=== PATIENT | male | born 1955 | race Caucasian/White ===

== ENCOUNTER → 2018-02-14 14:54 | Outpatient (CLI) | payer OTHER, SELFPAY ==
--- NOTE | 2018-02-14 | DI.MRI.S_ITS ---
PROCEDURE: MR LUMBAR SPINE WO CON INDICATIONS: LOW BACK PAIN TECHNIQUE: Noncontrast sagittal T1 spin echo and T2 fast echo, sagittal STIR, axial T1 and T2 fast spin echo through the lumbar spine. In cases with scoliosis, additional coronal T2 fast spin echo may be performed. COMPARISON: None. FINDINGS: Image quality: Excellent. Alignment and Curvature: There is normal bony alignment. Bone Marrow: Marrow is of normal overall signal. No acute vertebral body compression fractures. Spinal Cord: Conus medullaris terminates at the L1 level. Visualized cord demonstrates normal signal and size. Paraspinous Soft Tissues: No paravertebral masses. T12-L1: Mild loss of disc height is seen. Loss of disc signal is seen. Mild generalized disc bulge is seen. No significant neural foraminal or central canal narrowing are seen. L1-L2: Mild loss of disc height is seen. Loss of disc signal is seen. Moderate generalized disc bulge is seen. Moderate bilateral neural foraminal narrowing is seen, right worse than left. Moderate central canal narrowing is seen. L2-L3: Moderate loss of disc height is seen. Loss of disc signal is seen. Moderate generalized disc bulge is seen. Moderate bilateral neural foraminal narrowing is seen, left worse than right. Mild to moderate central canal narrowing is seen. L3-L4: There is at least moderate loss of disc height is seen. Moderate disc bulge is seen, which is eccentric to the left. Schmorl's nodes are seen at the inferior endplate of L3 and the superior endplate of L4. Mild facet joint hypertrophy is seen. Moderate to severe bilateral neural foraminal narrowing is seen, left worse than right. There is a degree of impingement seen upon the exiting nerve roots. Mild to moderate central canal narrowing is seen. L4-L5: Moderate loss of disc height is seen. Loss of disc signal is seen. Mild to moderate disc bulge is seen at this level. Mild facet joint hypertrophy is seen. Moderate to severe right-sided and moderate left-sided neural foraminal narrowing. Minimal central canal narrowing is seen. L5-S1: Mild to moderate loss of disc height and disc signal are seen. Mild to moderate disc bulge is seen. Mild facet joint hypertrophy is seen. Moderate to severe bilateral neural foraminal narrowing is seen, right worse than left. There is a degree of impingement seen upon the exiting nerve roots. Mild central canal narrowing is seen. An annular fissure is seen posteriorly, as on series 3 image 9. IMPRESSION: Multiple levels of degenerative change are seen, which are overall most prominent at the L3-L4 level. Moderate to severe bilateral neural foraminal narrowing can be seen at L3-L4 and L5-S1. An annular fissure is seen at L5-S1. Dictated by: Eduardo Busby M.D. on 02/14/2018 at 14:48 Approved by: Eduardo Busby M.D. on 02/14/2018 at 14:53
== END ==
PROVIDERS: Visit Provider Student in an Organized Health Care Education/Training Program
DX: M51.36 Other intervertebral disc degeneration, lumbar region (principal); M48.061 Spinal stenosis, lumbar region without neurogenic claudication; M48.07 Spinal stenosis, lumbosacral region; M54.5 Low back pain
CPT/HCPCS: 72148